=== PATIENT | male | born 1950 | race Caucasian/White ===

== ENCOUNTER 2018-10-12 17:06 | Emergency (ER) | payer OTHER, MEDICARE ==
[~2018-10-12] VITALS: Ht 180.3 cm; Wt 90.0 kg
[2018-10-12 18:15] LABS: HEMATOCRIT 39.9 % (39.0-50.0); HEMOGLOBIN 13.6 g/dl (14.0-18.0); IMMATURE GRANULOCYTES 0.6 % (0.0-5.0); MEAN CELL VOLUME 91.5 fL CALC (80.0-100.0); MEAN CORPUSCULAR HGB 31.2 pG CALC (26.0-32.0); MEAN CORPUSCULAR HGB CONC 34.1 g/L CALC (32.0-36.0); NEUT# 8.17 thou/uL (1.82-7.42); RED BLOOD COUNT 4.36 mill/uL (4.70-6.10)
[2018-10-12 18:29] LABS: ALBUMIN 4.7 g/dL (3.2-5.0); ALKALINE PHOSPHATASE 57 u/l (38-126); ANION GAP 16 (6-22 (CALC)); BILIRUBIN, TOTAL 0.5 mg/dL (0.0-1.4); BUN 25 mg/dL (8-23); BUN/CREATININE RATIO 21 (12-20 (CALC)); CARBON DIOXIDE 22 mmol/l (22-30); CHLORIDE 106 mmol/l (95-108); CREATININE 1.2 mg/dL (0.7-1.3); GFR 60 ML/MIN (>=60 (CALC)); GFR FOR AFR.AMER. > 60 ML/MIN (>=60 (CALC)); POTASSIUM 4.4 mmol/l (3.5-5.1); SGOT/AST 39 u/l (19-48); SODIUM 140 mmol/l (137-146); TOTAL PROTEIN 7.6 g/dL (6.3-8.2)
[2018-10-12] MEDS ORDERED: PERCOCET 5/325M1 TAB PO (20:27)
[2018-10-12 20:53] VITALS: BP 124/72
== END 2018-10-12 20:54 | disposition home or self-care (01) | DRG 605 ==
LOC: ED 17:06
PROVIDERS: Emergency Medicine
DX: S20.212A Contusion of left front wall of thorax, initial encounter (principal); S40.012A Contusion of left shoulder, initial encounter; S80.11XA Contusion of right lower leg, initial encounter; S80.212A Abrasion, left knee, initial encounter; V49.49XA Driver injured in collision with other motor vehicles in traffic accident, initial encounter; Y92.410 Unspecified street and highway as the place of occurrence of the external cause; M47.812 Spondylosis without myelopathy or radiculopathy, cervical region
CPT/HCPCS: J0131; Q9967

== ENCOUNTER 2023-07-14 07:29 | Emergency (ER) | payer OTHER, MEDICARE ==
[~2023-07-14] VITALS: Ht 180.3 cm; Wt 89.8 kg
[~2023-07-14 07:29] MED LIST: KEFLEX500 MG PO; PERCOCET 5/325M1 TAB PO
[2023-07-14 07:34] VITALS: BP 134/80
[2023-07-14 07:45] VITALS: BP 127/74
[2023-07-14 07:56] VITALS: BP 134/80
== END 2023-07-14 07:58 | disposition home or self-care (01) | DRG 950 ==
LOC: ED 07:29
DX: S61.412D Laceration without foreign body of left hand, subsequent encounter (principal); X58.XXXD Exposure to other specified factors, subsequent encounter; I10 Essential (primary) hypertension; E11.9 Type 2 diabetes mellitus without complications